=== PATIENT | female | born 1940 | race American Indian/Alaskan Native ===

== ENCOUNTER 2020-05-13 09:51 | Emergency (ER) | payer MEDICARE, OTHER ==
[~2020-05-13] VITALS: Ht 160 cm; Wt 79.4 kg
[~2020-05-13 09:51] MED LIST: GLIPIZIDE XL5 MG PO; HYDROCHLOROTHIA25 MG PO; KLOR-CON M2020 MEQ PO; LANTUS100 UNIT/1 SUB-Q; LISINOPRIL2.5 MG PO; MAXZIDE 37.5 MG-1 EA PO; METFORMIN HCL500 MG PO; NIFEDIPINE10 MG PO; NITROGLYCERIN0.4 MG SL; NORCO 5-325 TA1 EACH PO; ZITHROMAX TRI-500 MG PO
[2020-05-13] MEDS ORDERED: SYNTHROID25 MCG PO (10:06)
[2020-05-13] MEDS ORDERED: CARVEDILOL25 MG PO (10:06)
[2020-05-13] MEDS ORDERED: GLUCOPHAGE1000 MG PO (10:07)
[2020-05-13] MEDS ORDERED: ALDACTONE25 MG PO (10:08)
[2020-05-13] MEDS ORDERED: LISINOPRIL20 MG PO (10:08)
[2020-05-13] MEDS ORDERED: ADULT ASPIRIN R81 MG PO (10:08)
[2020-05-13] MEDS ORDERED: LIPITOR40 MG PO (10:09)
[2020-05-13] MEDS ORDERED: VITAMIN D3125 MC2 PO (10:10)
[2020-05-13] MEDS ORDERED: LANTUS100 UNITS/ SUB-Q (10:10)
--- NOTE | 2020-05-13 13:35 | EKG ---
[facility] [address] [facility] [place] [address] Signed Atrial fibrillation Nonspecific ST and T wave abnormality Abnormal ECG No previous ECGs available Confirmed by MAYELA CASTILLO MD ([id number]) on 05/13/2020 1:34:56 PM Electronically Signed By: MAYELA CASTILLO MD 05/13/20 1335 PATIENT NAME: FALGUNI CROWELL Electrocardiogram DATE OF : 38 PHYSICIAN: MAYELA CASTILLO MD REPORT #: [id number] REPORT IS CONFIDENTIAL AND NOT TO BE RELEASED WITHOUT AUTHORIZATION
[2020-05-15] MEDS ORDERED: ELIQUIS5 MG PO (11:35)
[2020-05-15] MEDS ORDERED: NOVOLOG FL100 UNIT/1 SUB-Q (11:37)
[2020-05-15] MEDS ORDERED: PEN NEEDLE1 EA13 VI (11:38)
== END 2020-05-13 14:17 | disposition home or self-care (01) ==
LOC: ED 09:51
DX: E11.649 Type 2 diabetes mellitus with hypoglycemia without coma (principal); Z20.822 Contact with and (suspected) exposure to COVID-19; E11.9 Type 2 diabetes mellitus without complications; I10 Essential (primary) hypertension; Z79.899 Other long term (current) drug therapy; Z79.4 Long term (current) use of insulin; Z79.82 Long term (current) use of aspirin
CPT/HCPCS: 70450; 71045; 80053; 81001; 84484; 85025; 93005; 93010; 99284-25; C9803; J7040; U0003

== ENCOUNTER 2021-10-27 10:19 | Emergency (ER) | payer MEDICARE, OTHER ==
[~2021-10-27] VITALS: Ht 160 cm; Wt 75.3 kg
[~2021-10-27 10:19] MED LIST changes: +ADULT ASPIRIN R81 MG PO; +ALDACTONE25 MG PO; +CARVEDILOL25 MG PO; +ELIQUIS5 MG PO; +GLUCOPHAGE1000 MG PO; +LANTUS100 UNITS/ SUB-Q; +LIPITOR40 MG PO; +LISINOPRIL20 MG PO; +NOVOLOG FL100 UNIT/1 SUB-Q; +PEN NEEDLE1 EA13 VI; +SYNTHROID25 MCG PO; +VITAMIN D3125 MC2 PO
--- OUTSIDE RECORDS SUMMARY | 2021-10-27 10:22 | XMS ---
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 Care History Medical/Surgical 05/15/2020 [facility] - PATIENT IS SHERRI ELIGIBLE, \T\middot;\T\nbsp; PLEASE REFER PATIENT TO [facility] FOR NON EMERGENT MEDICAL NEEDS. \T\middot;\T\nbsp; [facility] CAN SEE PATIENTS SAME DAY FOR APTS IF PATIENT CALLS FIRST THING IN THE MORNING. E.D. VISIT COUNT (12 MO.) 1 [facility] 1 [facility] TOTAL 2 NOTE: Visits indicate total known visits. ED/C VISIT TRACKING (12 MO.) 10/27/2021 10:20 [facility] TYPE: Emergency COMPLAINT: - FALL 08/27/2021 13:12 [facility] TYPE: Emergency DIAGNOSES: - Local infection of the skin and subcutaneous tissue, unspecified - Type 2 diabetes mellitus with other skin complications - Sepsis, unspecified organism - Post-op Problem - Infection following a procedure, unspecified, initial encounter - Wound Re-evaluation INPATIENT VISIT TRACKING (12 MO.) 08/27/2021 13:12 [facility] TYPE: Internal Medicine DIAGNOSES: - Acute kidney failure, unspecified - Peripheral vascular disease, unspecified - Streptococcal infection, unspecified site - residential (current) use of insulin - Acquired absence of left foot - Local infection of the skin and subcutaneous tissue, unspecified - Bacterial infection, unspecified - Atherosclerosis of [place] arteries of extremities with rest pain, left leg - Infection following a procedure, other surgical site, initial encounter - Type 2 diabetes mellitus with diabetic neuropathy, unspecified - Gangrene, not elsewhere classified - Type 2 diabetes mellitus with other skin complications - Chronic kidney disease, stage 3 unspecified - Infection following a procedure, unspecified, initial encounter [email or web address]
[2021-10-27] MEDS ORDERED: PLAVIX75 MG PO (11:37)
== END 2021-10-27 15:26 | disposition home or self-care (01) ==
LOC: ED 10:19
DX: S00.83XA Contusion of other part of head, initial encounter (principal); E11.9 Type 2 diabetes mellitus without complications; I10 Essential (primary) hypertension; Z95.1 Presence of aortocoronary bypass graft; Z79.4 Long term (current) use of insulin; Z79.899 Other long term (current) drug therapy; Z79.01 Long term (current) use of anticoagulants; Z79.82 Long term (current) use of aspirin; W22.09XA Striking against other stationary object, initial encounter
CPT/HCPCS: 70450; 99283-25

== ENCOUNTER 2022-05-21 20:30 | Emergency (ER) | payer MEDICARE, OTHER ==
[~2022-05-21] VITALS: Ht 160 cm; Wt 75.3 kg
[~2022-05-21 20:30] MED LIST changes: +PLAVIX75 MG PO
--- OUTSIDE RECORDS SUMMARY | 2022-05-21 20:32 | XMS ---
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 PHONE: [phone] Mari has no Care Guidelines for this patient. Care History Medical/Surgical 05/15/2020 [facility] - PATIENT IS SEHRRI ELIGIBLE, \T\middot;\T\nbsp; PLEASE REFER PATIENT TO [facility] FOR NON EMERGENT MEDICAL NEEDS. \T\middot;\T\nbsp; [facility] CAN SEE PATIENTS SAME DAY FOR APTS IF PATIENT CALLS FIRST THING IN THE MORNING. E.D. VISIT COUNT (12 MO.) [address] TOTAL 3 NOTE: Visits indicate total known visits. 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 - Type 2 diabetes mellitus without complications - Contusion of other part of head, initial encounter - intermediate designer (current) use of aspirin 08/27/2021 13:12 [facility] [place] [facility]: [facility] DIAGNOSES: - Infection following a procedure, unspecified, initial encounter - Sepsis, unspecified organism - Local infection of the skin and subcutaneous tissue, unspecified - Wound Re-evaluation - Post-op Problem - Type 2 diabetes mellitus with other skin complications INPATIENT VISIT TRACKING (12 MO.) 08/27/2021 13:12 [facility] [place] TYPE: Internal Medicine DIAGNOSES: - Infection following a procedure, unspecified, initial encounter - Acquired absence of left foot - Type 2 diabetes mellitus with other skin complications - Streptococcal infection, unspecified site - Type 2 diabetes mellitus with diabetic neuropathy, unspecified - Acute kidney failure, unspecified - Atherosclerosis of [place] arteries of extremities with rest pain, left leg - Local infection of the skin and subcutaneous tissue, unspecified - Chronic kidney disease, stage 3 unspecified - [facility] (current) use of insulin - Gangrene, not elsewhere classified - Peripheral vascular disease, unspecified - Infection following a procedure, other surgical site, initial encounter - Bacterial infection, unspecified [id number]
== END 2022-05-22 00:17 | disposition home or self-care (01) ==
LOC: ED 20:30
PROC: 0HQ0XZZ Repair Scalp Skin, External Approach (ICD-10-PCS; principal; 2022-05-22)
DX: S62.92XA Unspecified fracture of left hand, initial encounter for closed fracture (principal); S01.01XA Laceration without foreign body of scalp, initial encounter; I10 Essential (primary) hypertension; E11.9 Type 2 diabetes mellitus without complications; Z23 Encounter for immunization; Z79.01 Long term (current) use of anticoagulants; Z79.4 Long term (current) use of insulin; Z79.899 Other long term (current) drug therapy; Z79.82 Long term (current) use of aspirin; W01.0XXA Fall on same level from slipping, tripping and stumbling without subsequent striking against object, initial encounter
CPT/HCPCS: 12004; 36415; 70450; 72125; 73130; 80048; 80053; 81001; 85025; 85610; 85730; 90471; 90715; 99284-25; A9270; G0480; J7030

== ENCOUNTER 2022-05-30 09:27 | Emergency (ER) | payer MEDICARE, OTHER ==
[~2022-05-30] VITALS: Ht 160 cm; Wt 75.3 kg
--- OUTSIDE RECORDS SUMMARY | 2022-05-30 09:30 | XMS ---
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 Care History Medical/Surgical 05/15/2020 [facility] - PATIENT IS SHERRI ELIGIBLE, \T\middot;\T\nbsp; PLEASE REFER PATIENT TO [facility] FOR NON EMERGENT MEDICAL NEEDS. \T\middot;\T\nbsp; [facility] CAN SEE PATIENTS SAME DAY FOR APTS IF PATIENT CALLS FIRST THING IN THE MORNING. E.D. VISIT COUNT (12 MO.) 1 [facility] 3 [facility] TOTAL 4 NOTE: Visits indicate total known visits. ED/UCC VISIT TRACKING (12 MO.) 05/30/2022 09:27 [facility] [place] TYPE: Emergency COMPLAINT: - CHEST PAIN 05/21/2022 20:30 [facility] [place] TYPE: Emergency COMPLAINT: - FALL DIAGNOSES: - Other snf (current) drug therapy - Encounter for immunization - Headache, unspecified - roasterman (current) use of anticoagulants - Type 2 diabetes mellitus without complications - roasterman (current) use of insulin - Unspecified fracture of left wrist and hand, initial encounter for closed fracture - Essential (primary) hypertension - Fall on same level from slipping, tripping and stumbling without subsequent striking against object, initial encounter - Laceration without foreign body of scalp, initial encounter - roasterman (current) use of aspirin 10/27/2021 10:20 [facility] [place] TYPE: Emergency COMPLAINT: - FALL DIAGNOSES: - USP (current) use of aspirin - USP (current) use of insulin - Presence of aortocoronary bypass graft - Striking against other stationary object, initial encounter - Essential (primary) hypertension - USP (current) use of anticoagulants - Other oil 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 (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) drug therapy - Type 2 diabetes mellitus without complications - Contusion of other part of head, initial encounter 08/27/2021 13:12 [facility] [place] [facility]: [facility] DIAGNOSES: - Infection following a procedure, unspecified, initial encounter - Sepsis, unspecified organism - Local infection of the skin and subcutaneous tissue, unspecified - Wound Re-evaluation - Post-op Problem - Type 2 diabetes mellitus with other skin complications INPATIENT VISIT TRACKING (12 MO.) 08/27/2021 13:12 [facility] [place] TYPE: Internal Medicine DIAGNOSES: - Bacterial infection, unspecified - Infection following a procedure, unspecified, initial encounter - Acquired absence of left foot - Type 2 diabetes mellitus with other skin complications - Streptococcal infection, unspecified site - Type 2 diabetes mellitus with diabetic neuropathy, unspecified - Acute kidney failure, unspecified - Atherosclerosis of [place] arteries of extremities with rest pain, left leg - Local infection of the skin and subcutaneous tissue, unspecified - Chronic kidney disease, stage 3 unspecified - USP (current) use of insulin - Gangrene, not elsewhere classified - Peripheral vascular disease, unspecified - Infection following a procedure, other surgical site, initial encounter [id number]
[2022-05-30] MEDS ORDERED: METFORMIN HCL500 MG PO (11:31)
[2022-05-30] MEDS ORDERED: NORVASC5 MG PO (11:32)
[2022-05-30] MEDS ORDERED: NORVASC2.5 MG PO (11:32)
[2022-05-30] MEDS ORDERED: INDAPAMIDE1.25 MG PO (11:33)
[2022-05-30] MEDS ORDERED: LANTUS100 UNITS/ SUB-Q (11:34)
--- NOTE | 2022-05-31 17:41 | EKG ---
[facility] [address] [facility] [place] [address] Signed Atrial fibrillation with slow ventricular response Septal infarct , age undetermined Abnormal ECG When compared with ECG of 13-MAY-2020 22:18, Septal infarct is now present Nonspecific T wave abnormality has replaced inverted T waves in Lateral leads Confirmed by MAYELA CASTILLO MD ([id number]) on 05/31/2022 5:41:24 PM Electronically Signed By: MAYELA CASTILLO MD 05/31/22 1741 PATIENT NAME: FALGUNI CROWELL Electrocardiogram DATE OF : 38 PHYSICIAN: MAYELA CASTILLO MD REPORT #: [id number] REPORT IS CONFIDENTIAL AND NOT TO BE RELEASED WITHOUT AUTHORIZATION
== END 2022-05-30 18:04 | disposition home or self-care (01) ==
LOC: ED 09:27
DX: D64.9 Anemia, unspecified (principal); S01.01XD Laceration without foreign body of scalp, subsequent encounter; I10 Essential (primary) hypertension; E11.9 Type 2 diabetes mellitus without complications; Z79.899 Other long term (current) drug therapy; Z79.4 Long term (current) use of insulin; Z79.82 Long term (current) use of aspirin
CPT/HCPCS: 36415; 36430; 71045; 80053; 84484; 85025; 86850; 86900; 86901; 86922; 93005; 93010; 99285-25; P9016

== ENCOUNTER 2022-09-06 10:33 | Emergency (ER) | payer MEDICARE, OTHER ==
[~2022-09-06] VITALS: Ht 160 cm; Wt 78.5 kg
[~2022-09-06 10:33] MED LIST changes: +INDAPAMIDE1.25 MG PO; +NORVASC2.5 MG PO; +NORVASC5 MG PO
--- OUTSIDE RECORDS SUMMARY | 2022-09-06 10:37 | XMS ---
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 Care History Medical/Surgical 05/15/2020 [facility] - PATIENT IS SHERRI ELIGIBLE, \T\middot;\T\nbsp; PLEASE REFER PATIENT TO [facility] FOR NON EMERGENT MEDICAL NEEDS. \T\middot;\T\nbsp; [facility] CAN SEE PATIENTS SAME DAY FOR APTS IF PATIENT CALLS FIRST THING IN THE MORNING. E.D. VISIT COUNT (12 MO.) 4 [facility]. TOTAL 4 NOTE: Visits indicate total known visits. ED/UCC VISIT TRACKING (12 MO.) 09/06/2022 10:34 [facility] [place] TYPE: Emergency COMPLAINT: - POSS STROKE 05/30/2022 09:27 [facility] [place] TYPE: Emergency COMPLAINT: - CHEST PAIN DIAGNOSES: - Anemia, unspecified - Essential (primary) hypertension - Laceration without foreign body of scalp, subsequent encounter - biomedical engineering technologist (current) use of aspirin - detention (current) use of insulin - Other chest pain - Other wire tinner (current) drug therapy - Type 2 diabetes mellitus without complications 05/21/2022 20:30 [facility] [place] TYPE: Emergency COMPLAINT: - FALL DIAGNOSES: - Encounter for immunization - Essential (primary) hypertension - Fall on same level from slipping, tripping and stumbling without subsequent striking against object, initial encounter - Headache, unspecified - Laceration without foreign body of scalp, initial encounter - detention (current) use of anticoagulants - biomedical engineering technologist (current) use of aspirin - detention (current) use of insulin - Other fpc (current) drug therapy - Type 2 diabetes mellitus without complications - Unspecified fracture of left wrist and hand, initial encounter for closed fracture 10/27/2021 10:[address] [facility] [place] TYPE: Emergency COMPLAINT: - FALL DIAGNOSES: - Contusion of other part of head, initial encounter - Essential (primary) hypertension - detention (current) use of anticoagulants - detention (current) use of aspirin - detention (current) use of insulin - Other fpc (current) drug therapy - Presence of aortocoronary bypass graft - Striking against other stationary object, initial encounter - Type 2 diabetes mellitus without complications INPATIENT VISIT TRACKING (12 MO.) No inpatient visits to display in this time frame [email or web address]
[2022-09-06] MEDS ORDERED: PREDNISONE20 MG PO (14:04)
[2022-09-06 14:11] VITALS: BP 143/61
== END 2022-09-06 14:12 | disposition home or self-care (01) ==
LOC: ED 10:33
DX: G51.0 Bell's palsy (principal); I11.0 Hypertensive heart disease with heart failure; I50.9 Heart failure, unspecified; E11.9 Type 2 diabetes mellitus without complications; E03.9 Hypothyroidism, unspecified; I48.91 Unspecified atrial fibrillation; Z79.899 Other long term (current) drug therapy; Z79.01 Long term (current) use of anticoagulants; Z79.4 Long term (current) use of insulin
CPT/HCPCS: 70450; 70551; 99284-25; J7512

== ENCOUNTER 2024-10-07 19:23 | Emergency (ER) | payer MEDICARE, OTHER ==
[~2024-10-07] VITALS: Ht 160 cm; Wt 74.7 kg
[~2024-10-07 19:23] MED LIST changes: -LIPITOR40 MG PO; +LIPITOR80 MG PO; +NITROSTAT0.4 MG SL; +PREDNISONE20 MG PO; +TRAMADOL HCL50 MG PO; +VITAMIN B-121000 MCG PO; -VITAMIN D3125 MC2 PO; +VITAMIN D350 MC3 PO
[2024-10-07 19:49] LABS: BASOPHILS 0.4 % (0.1-1.2); EOSINOPHILS 2.9 % (0.7-5.8); HEMATOCRIT 34.8 % (34.1-44.9); HEMOGLOBIN 10.7 g/dL (11.2-15.7); LYMPHOCYTES 8.2 % (19.3-51.7); MCH 27.2 PG (25.6-32.2); MCHC 30.7 g/dL (32.2-35.5); MCV 88.3 fL (79.4-94.8); MONOCYTES 7.9 % (4.7-12.5); PLATELET COUNT 196 K/uL (182-369); RBC 3.94 M/uL (3.93-5.22)
[2024-10-07 20:03] LABS: ALBUMIN 3.1 g/dL (3.4-5.0); ALBUMIN/GLOBULIN RATIO 0.79 (1.1-2.4); ALCOHOL, MEDICAL <3 ng/dL (<3); ALKALINE PHOSPHATASE 121 U/L (46-116); ALT (SGPT) 26 U/L (14-59); ANION GAP 15.3 (7-21); AST (SGOT) 22 U/L (15-37); BILIRUBIN, TOTAL 0.3 mg/dL (0.2-1.0); BUN/CREATININE RATIO 15.88 (6.0-28.6); CALCIUM 9.2 mg/dL (8.5-10.1); CARBON DIOXIDE 25 mmol/L (21-32); CHLORIDE 106 mmol/L (98-107); CREATINE KINASE 37 U/L (26-192); CREATININE, SERUM 2.14 mg/dL (0.55-1.02); GLOMERULAR FILTRATION RATE,EST 22 mL/min (>60); POTASSIUM 4.3 mmol/L (3.5-5.1); UREA NITROGEN 34 mg/dL (7-18)
[2024-10-07 20:23] LABS: ABO A; ANTIBODY SCREEN NEGATIVE; RH POSITIVE
[2024-10-07] MEDS ORDERED: ACETAMINOPHEN 500 MG TAB PO ONE (20:30)
[2024-10-07 20:39] LABS: BILIRUBIN, URINE NEGATIVE (negative); BLOOD/HGB, URINE TRACE-L (Negative); KETONE, URINE TRACE (Negative); LEUK ESTERASE, URINE MODERATE (negative); NITRITE, URINE NEGATIVE (negative)
[2024-10-07 20:45] LABS: BACTERIA, URINE 4+ /hpf (negative); CASTS, URINE NONE SEEN \\lpf; COLLECTION TYPE, URINE CLEAN CATCH; CRYSTALS, URINE NONE SEEN (0-1+); EPITHELIAL CELLS, URINE SQUAMOUS 1+ /lpf (0-1+); RED BLOOD CELLS, URINE 0-1 /hpf (0-5); REFLEX CULTURE, URINE Yes (No); WHITE BLOOD CELLS, URINE >50 /HPF (0-5)
[2024-10-07] MEDS ORDERED: MACROBID 100 M100 MG PO (20:55)
[2024-10-07] MEDS ORDERED: NITROFURANTOIN MONOHYD MACROCR 100 MG HOME.PACK PO ONE (21:00)
[2024-10-07 21:03] LABS: AMPHETAMINES, URINE NEGATIVE (NEGATIVE); BARBITURATES, URINE NEGATIVE (NEGATIVE); BENZODIAZEPINE, URINE NEGATIVE (NEGATIVE); BUPRENORPHINE, URINE NEGATIVE (NEGATIVE); CANNABINOID, URINE NEGATIVE (NEGATIVE); COCAINE, URINE NEGATIVE (NEGATIVE); ECSTASY, URINE NEGATIVE (NEGATIVE); FENTANYL, URINE NEGATIVE (NEGATIVE); METHADONE, URINE NEGATIVE (NEGATIVE); OPIATES, URINE NEGATIVE (NEGATIVE); OXYCODONE, URINE NEGATIVE (NEGATIVE); PHENCYCLIDINE, URINE NEGATIVE (NEGATIVE)
[2024-10-07 21:15] VITALS: BP 148/64
--- NOTE | 2024-10-08 14:14 | EKG ---
[facility] [address] [facility] [place], [place] [address] Signed Atrial fibrillation Nonspecific ST and T wave abnormality Abnormal ECG When compared with ECG of 28-JUL-2023 08:33, No significant change was found Confirmed by Samy Zarate MD ([id number]) on 10/08/2024 2:14:24 PM Electronically Signed By: SAMY ZARATE MD 10/08/24 1414 PATIENT NAME: FALGUNI CROWELL GARCÍA Electrocardiogram DATE OF : 38 PHYSICIAN: SAMY ZARATE MD REPORT #: [id number] REPORT IS CONFIDENTIAL AND NOT TO BE RELEASED WITHOUT AUTHORIZATION
== END 2024-10-07 21:15 | disposition home or self-care (01) ==
LOC: ED 19:23
PROVIDERS: Internal Medicine
DX: S02.2XXA Fracture of nasal bones, initial encounter for closed fracture (principal); S00.03XA Contusion of scalp, initial encounter; N39.0 Urinary tract infection, site not specified; I11.0 Hypertensive heart disease with heart failure; I50.9 Heart failure, unspecified; E11.9 Type 2 diabetes mellitus without complications; I48.91 Unspecified atrial fibrillation; Z79.01 Long term (current) use of anticoagulants; Z79.4 Long term (current) use of insulin; W18.30XA Fall on same level, unspecified, initial encounter; Z79.899 Other long term (current) drug therapy
CPT/HCPCS: 36415; 70450; 70486; 71045; 72125; 80053; 80307; 81001; 82550; 84484; 85025; 86850; 86900; 86901; 87077; 87088; 87186; 93005; 93010; 99284-25; A9270; G0480